=== PATIENT | female | born 1960 | race Caucasian/White ===

== ENCOUNTER 2019-02-20 07:55 | Outpatient (CLI) | payer OTHER ==
[2019-02-20 11:09] LABS: CHOL/HDL RATIO 3.5 (<4.4); CHOLESTEROL 195 mg/dL; HDL CHOLESTEROL 56 mg/dL; LDL CHOLESTEROL,CALCULATED 114 mg/dL; VLDL CHOLESTEROL 25 mg/dL
== END 2019-02-20 07:56 | disposition home or self-care (01) ==
LOC: LAB.F 07:55
PROVIDERS: ATTEND Family Medicine
DX: E78.49 Other hyperlipidemia (principal)
CPT/HCPCS: 36415; 80061; 83721

== ENCOUNTER 2020-12-21 18:30 | Outpatient (CLI) | payer OTHER | END 2020-12-21 23:59 | disposition home or self-care (01) | LOC: LAB.R 18:30 | PROVIDERS: ATTEND Physician Assistant Medical | DX: M54.5 Low back pain (principal); R31.9 Hematuria, unspecified | CPT/HCPCS: 87086 ==

== ENCOUNTER 2021-12-15 13:42 | Outpatient (CLI) | payer OTHER | END 2021-12-15 13:43 | disposition left against medical advice (07) | LOC: EMS 13:42 | DX: R55 Syncope and collapse (principal); R11.0 Nausea ==